=== PATIENT | female | born 1990 | race Caucasian/White ===

== ENCOUNTER 2020-07-04 05:06 | Inpatient (IN) | payer BC ==
[2020-07-04] MEDS ORDERED: Sodium Chloride 0.9% 2.5 ML Syringe FLUSH PRN (05:12)
[2020-07-04] MEDS ORDERED: ceFAZolin 1 GM in Premix Bag 1 BAG IV ONE (05:12)
[2020-07-04] MEDS ORDERED: Sodium Chloride 0.9% 10 ML Syringe FLUSH PRN (05:12)
[2020-07-04] MEDS ORDERED: Sodium Chloride 0.9% 10 ML SDV IV PRN (05:12)
[2020-07-04] MEDS ORDERED: Citric Acid/Sodium Citrate Solution 30 ML Cup PO ONE (05:12)
[2020-07-04] MEDS ORDERED: Oxytocin/0.9 % Sodium Chloride 30 UNIT/500 ML BAG IV SCH (05:15)
[2020-07-04] MEDS: Lactated Ringers 1,000 ML IV SCH ×2 (05:45→07:16)
--- NOTE | 2020-07-04 06:45 | PCM.PREANE ---
Preanesthetic Assessment - Anesthesia/Transfusion/Family Hx Anesthesia History: Prior Anesthesia Without Reaction Family History of Anesthesia Reaction: No Transfusion History: No Prior Transfusion(s) Intubation History: Unknown - Review of Systems General: No Symptoms Pulmonary: No Symptoms Cardiovascular: No Symptoms Gastrointestinal: No Symptoms Neurological: No Symptoms Other: Reports: None - Physical Assessment Height: 5 ft Weight: 69.116 kg ASA Class: 2 Mental Status: Alert & Oriented x3 Airway Class: Mallampati = 1 Dentition: Reports: Normal Dentition Thyro-Mental Finger Breadths: 3 Mouth Opening Finger Breadths: 3 ROM/Head Extension: Full Lungs: Clear to Auscultation, Normal Respiratory Effort Cardiovascular: Regular Rate, Regular Rhythm - Lab Values: Laboratory Last Values WBC 6.53 K/uL (4.0-11.0) 07/04/20 05:30 RBC 4.72 M/uL (4.30-5.90) 07/04/20 05:30 Hgb 12.2 g/dL (12.0-16.0) 07/04/20 05:30 Hct 39.1 % (36.0-46.0) 07/04/20 05:30 MCV 82.8 fL (80.0-98.0) 07/04/20 05:30 MCH 25.8 pg (27.0-32.0) L 07/04/20 05:30 MCHC 31.2 g/dL (31.0-37.0) 07/04/20 05:30 RDW Std Deviation 69.3 fl (28.0-62.0) H 07/04/20 05:30 RDW Coeff of Thien 24 % (11.0-15.0) H 07/04/20 05:30 Plt Count 234 K/uL (150-400) 07/04/20 05:30 MPV 10.20 fL (7.40-12.00) 07/04/20 05:30 Nucleated RBC % 0.0 /100WBC 07/04/20 05:30 Nucleated RBCs # 0 K/uL 07/04/20 05:30 - Allergies Allergies/Adverse Reactions: Allergies Allergy/AdvReac Type Severity Reaction Status Date / Time No Known Allergies Allergy Verified 06/28/20 08:41 - Blood Blood Available: No - Anesthesia Plan Pre-Op Medication Ordered: None - Acknowledgements Anesthesia Type Planned: Spinal (general anesthesia back-up plan) Pt an Appropriate Candidate for the Planned Anesthesia: Yes Alternatives and Risks of Anesthesia Discussed w Pt/Guardian: Yes Pt/Guardian Understands and Agrees with Anesthesia Plan: Yes PreAnesthesia Questionnaire - Past Health History Medical/Surgical History: Denies Medical/Surgical History HEENT History: Reports: None Cardiovascular History: Reports: None Respiratory History: Reports: None Gastrointestinal History: Reports: None Genitourinary History: Reports: None HAND STRIPER History: Reports: Endometriosis, Musculoskeletal History: Reports: None Neurological History: Reports: Migraines Psychiatric History: Reports: None Endocrine/Metabolic History: Reports: None Hematologic History: Reports: None Immunologic History: Reports: None Oncologic (Cancer) History: Reports: None Dermatologic History: Reports: None - Infectious Disease History Infectious Disease History: Reports: None - Past Surgical History Head Surgeries/Procedures: Reports: None HEENT Surgical History: Reports: None Cardiovascular Surgical History: Reports: None Respiratory Surgical History: Reports: None GI Surgical History: Reports: None Female Surgical History: Reports: Section (x2), Other (See Below) Other Female Surgeries/Procedures: laparoscopy for endometriosis Endocrine Surgical History: Reports: None Neurological Surgical History: Reports: None Musculoskeletal Surgical History: Reports: None Oncologic Surgical History: Reports: None Dermatological Surgical History: Reports: None - SUBSTANCE USE Tobacco Use Status *Q: Never Tobacco User Tobacco Use Within Last Twelve Months: No Second Hand Smoke Exposure: No Recreational Drug Use History: No - HOME MEDS Home Medications: Home Meds Ferrous Sulfate, Dried [Iron] 160 mg PO DAILY 04/14/20 [History] Folic Acid 1 mg PO DAILY 04/14/20 [History] Vits #93/Iron Fum/FA [ Formula Tablet] 1 each PO DAILY 04/14/20 [History] - CURRENT (IN HOUSE) MEDS Current Meds: Current Medications Oxytocin/Sodium Chloride (Oxytocin 30 Unit/500 Ml-Ns) 30 unit in 500 mls @ 250 mls/hr IV TITRATE ABBY Lactated Ringer's (Ringers, Lactated) 1,000 mls @ 500 mls/hr IV BOLUS ABBY Last Admin: 07/04/20 05:45 Dose: 500 mls/hr Documented by: Sodium Chloride (Saline Flush) 10 ml FLUSH ASDIRECTED PRN PRN Reason: Keep Vein Open Sodium Chloride (Saline Flush) 2.5 ml FLUSH ASDIRECTED PRN PRN Reason: Keep Vein Open Sodium Chloride (Normal Saline) 10 ml IV ASDIRECTED PRN PRN Reason: IV Use Discontinued Medications Citric Acid/Sodium Citrate (Bicitra Solution) 30 ml PO ONETIME ONE Stop: 07/04/20 05:13 Cefazolin Sodium/Dextrose 1 gm (/ Premix) 50 mls @ 100 mls/hr IV ONETIME ONE Stop: 07/04/20 05:41
[2020-07-04] MEDS ORDERED: Sodium Chloride 0.9% 20 ML ONE (07:10)
[2020-07-04] MEDS ORDERED: ePHEDrine 50 MG/ML SDV ONE (07:10)
[2020-07-04] MEDS ORDERED: ceFAZolin 1 GM Vial ONE (07:10)
[2020-07-04] MEDS ORDERED: Oxytocin 10 Units/1 ML SDV ONE (07:10)
[2020-07-04] MEDS ORDERED: Ondansetron 4 MG/2 ML SDV ONE (07:10)
[2020-07-04] MEDS ORDERED: Propofol 200 MG/20 ML SDV ONE (07:12)
[2020-07-04] MEDS ORDERED: Morphine PF 10 MG/10 ML SDV ONE (07:13)
[2020-07-04] MEDS ORDERED: fentaNYL 100 MCG/2 ML SDV IVPUSH PRN (09:47)
[2020-07-04] MEDS ORDERED: diphenhydrAMINE 50 MG/ML SDV IVPUSH PRN ×2 (09:47→10:00)
[2020-07-04] MEDS ORDERED: Ondansetron 4 MG/2 ML SDV IVPUSH PRN ×2 (09:47→10:00)
[2020-07-04] MEDS ORDERED: Naloxone 0.4 MG/ML Syringe IVPUSH PRN (09:47)
[2020-07-04] MEDS ORDERED: Acetaminophen/oxyCODONE 325-5 MG Tab PO PRN ×2 (09:47→10:00)
[2020-07-04] MEDS ORDERED: Nalbuphine 10 MG/1 ML Vial IVPUSH PRN (09:47)
[2020-07-04] MEDS ORDERED: Lactated Ringers 1,000 ML IV SCH (10:00)
[2020-07-04] MEDS ORDERED: Oxytocin/Lactated Ringers 30 UNIT/500 ML BAG IV SCH (10:00)
[2020-07-04] MEDS ORDERED: Bisacodyl 10 MG Supp RECTAL PRN (10:00)
[2020-07-04] MEDS ORDERED: Ibuprofen 800 MG Tab PO PRN (10:00)
[2020-07-04] MEDS ORDERED: Lanolin 100% Cream 7 GM Tube TOP PRN (10:00)
[2020-07-04] MEDS ORDERED: Tranexamic Acid 1,000 MG in Sodium Chloride 0.9% 100 ML IV PRN (10:00)
[2020-07-04] MEDS ORDERED: Methylergonovine 0.2 MG/1 ML Amp IM PRN (10:00)
[2020-07-04] MEDS ORDERED: Oxytocin 10 Units/1 ML SDV IM PRN (10:00)
[2020-07-04] MEDS ORDERED: Misoprostol 200 MCG Tab RECTAL PRN (10:00)
--- NOTE | 2020-07-04 10:18 | PCM.POSTAN ---
POST ANESTHESIA ASSESSMENT - MENTAL STATUS Mental Status: Alert - RESPIRATORY Respiratory Status: Respiratory Rate WNL - CARDIOVASCULAR CV Status: Pulse Rate WNL - GASTROINTESTINAL GI Status: No Symptoms - PAIN Pain Score: 0 (Spinal regressing.) - POST OP HYDRATION Hydration Status: Adequate & Stable (Doing well. VSS. Spinal regressing.)
[2020-07-04] MEDS: Ketorolac 30 MG/ML SDV IVPUSH SCH ×3 (10:30→21:07)
--- NOTE | 2020-07-04 20:06 | PCM.OPNOTE ---
- General Post-Op/Procedure Note Date of Surgery/Procedure: 07/04/20 Operative Procedure(s): Tertiary lower transverse cesearean section Findings: Live male delivered at 828am , 8/9 weight 2970g , 2 loose nuchal cords Pre Op Diagnosis: 29yo @ 39w1d. Previous X 2. growth restriction. Rh negative Post-Op Diagnosis: same Anesthesia Technique: Spinal Primary Surgeon: Marily Toledo Anesthesia Provider: Maurice Carey Pathology: placenta Fluid Replacement, Intraop: 2,400 Output, Urine Amount: 475 EBL in mLs: 900 Complications: None Condition: Good Free Text/Narrative:: Intake & Output 07/04/20 07/04/20 07/04/20 06:59 14:59 22:59 Output Total 825 700 Balance -825 700
[2020-07-04] MEDS: Docusate Sodium 100 MG Cap PO SCH (21:08)
[2020-07-05] MEDS: Ketorolac 30 MG/ML SDV IVPUSH SCH ×2 (04:28→11:50)
--- NOTE | 2020-07-05 07:20 | PCM48HPAN ---
Post Anesthesia Note - EVALUATION WITHIN 48HRS OF ANESTHETIC Vital Signs in Normal Range: Yes Patient Participated in Evaluation: Yes Respiratory Function Stable: Yes Airway Patent: Yes Cardiovascular Function Stable: Yes Hydration Status Stable: Yes Pain Control Satisfactory: Yes Nausea and Vomiting Control Satisfactory: Yes Mental Status Recovered: Yes Vital Signs: Last Vital Signs Temp 36.3 C 07/05/20 05:00 Pulse 79 07/05/20 05:00 Resp 17 07/05/20 05:00 BP 100/53 L 07/04/20 20:03 Pulse Ox 94 L 07/05/20 05:00 - COMMENTS/OBSERVATIONS Free Text/Narrative:: The patient has no complaints. There were no apparent anesthetic complications at this time. Discharge from anesthesia service.
[2020-07-05] MEDS: Docusate Sodium 100 MG Cap PO SCH ×2 (09:25→20:48)
--- NOTE | 2020-07-05 10:15 | OR ---
SURGEON: LILI REAVES DATE OF PROCEDURE: 07/04/2020 PREOPERATIVE DIAGNOSIS: A 29-year-old, 3, para 2-0-0-1, at 39 and 1 day for history section, Rh negative also, growth restriction. POSTOPERATIVE DIAGNOSIS: Same PROCEDURE: Tertiary lower-segment section. ESTIMATED BLOOD LOSS: 900. IV FLUIDS: 2400. URINE OUTPUT: 475. ANESTHESIA: Spinal. NOTES AND FINDINGS: A live male delivered at 8:28. score was 8 and 9. Weight is 2970 g. COMPLICATION: None. BRIEF HISTORY ABOUT THE PATIENT: She is a 29-year-old G3, P 2-0-0-1 at 39 weeks 1 day, who was undergoing routine care. She was noted to have a 2-vessel cord. Also, she had left ventricular echogenic focus. She had cell-free DNA, which was done, which was normal. she was referred to Maternal- Medicine and was diagnosed with growth restriction. She was receiving biweekly antepartum surveillance, and she had good interval growth and normal Dopplers. GBS was also negative. She was Rh negative, which she received RhoGAM. So the patient was planned to be delivered at 39 weeks. The patient was explained the risks, benefits, and alternatives of a tertiary delivery. She desired to proceed. DESCRIPTION OF PROCEDURE: The patient was taken to the operating room, where spinal anesthesia was performed without difficulty. She was prepared and draped in the dorsal supine position with a leftward tilt. A Pfannenstiel skin incision was made with a scalpel and carried down to the fascia with the scalpel. The fascia was incised and extended laterally. The fascia was from the rectus muscles superiorly and inferiorly. The rectus muscle was in the midline at the pubic symphysis. The muscle in the midline was then carefully dissected. Entry into the peritoneum was gained with gentle careful sharp and blunt dissection. Once entry into peritoneum was confirmed, the peritoneum was stretched with upward and lateral traction. The lower uterine segment was noted. An Richi retractor was then placed in. A bladder flap was created. A lower uterine incision was made. The fetus was in cephalic position. There was two cord noted around the neck. With fundal pressure, the head was delivered. Nuchal cord was reduced. With additional fundal pressure, the body was delivered. The nose was suctioned. Delayed cord clamping was observed. The was handed to the awaiting nursery nurse. Cord blood gases were then obtained. The placenta was delivered via manual massage of the uterine fundus. The uterus was then cleaned with moist laparotomy sponges. Uterus was closed in 2 layers, first with 0 Vicryl, second with 0 Monocryl. However, the uterine incision on the left side was noted to be oozing with every incision, so multiple [id number] was made. Hemostasis was noted. Then, the Richi was removed. The bladder blade was put. Incision was inspected, again noted to be hemostatic. Then, the gutters were cleaned. The right and left ovary were noted to be normal. The peritoneum was closed. The fascia was then closed with 0 Vicryl. The skin was closed with 3-0 Monocryl on a Fidencio needle. All instrument and pad counts were correct x2. LIANNE / EDVIN /[id number] MTDD
--- NOTE | 2020-07-05 19:10 | PCM.PNPP ---
- General Info Date of Service: 07/05/20 Subjective Update: 29yo P3002 s/p tertiary POD1 Ambulating , voiding and tolerating regular diet RH negative to get rhogam today Functional Status: Reports: Pain Controlled, Tolerating Diet, Ambulating, Urinating - Review of Systems General: Reports: No Symptoms HEENT: Reports: No Symptoms Pulmonary: Reports: No Symptoms Cardiovascular: Reports: No Symptoms Gastrointestinal: Reports: No Symptoms Genitourinary: Reports: No Symptoms Musculoskeletal: Reports: No Symptoms Skin: Reports: No Symptoms Neurological: Reports: No Symptoms Psychiatric: Reports: No Symptoms - General Info Date of Service: 07/05/20 - Patient Data Vital Signs - Most Recent: Last Vital Signs Temp 36.3 C 07/05/20 16:07 Pulse 84 07/05/20 16:07 Resp 18 07/05/20 16:07 BP 103/55 L 07/05/20 16:07 Pulse Ox 97 07/05/20 16:07 Weight - Most Recent: 69.116 kg I&O - Last 24 Hours: Intake & Output 07/05/20 07/05/20 07/05/20 06:59 14:59 22:59 Intake Total 900 Output Total 600 500 Balance 300 -500 Lab Results - Last 24 Hours: Laboratory Results - last 24 hr 07/05/20 Range/Units 05:32 Hgb 9.9 L (12.0-16.0) g/dL Hct 31.8 L (36.0-46.0) % Med Orders - Current: Current Medications Bisacodyl (Dulcolax) 10 mg RECTAL ONETIME PRN PRN Reason: Constipation Diphenhydramine HCl (Benadryl) 25 mg IVPUSH Q6H PRN PRN Reason: Itching or Nausea Docusate Sodium (Colace) 100 mg PO BID [facility] Last Admin: 07/05/20 09:25 Dose: 100 mg Documented by: Emollient Ointment (Lansinoh Hpa) 0 gm TOP ASDIRECTED PRN PRN Reason: Sore Nipples Fentanyl (Sublimaze) 50 mcg IVPUSH Q1H PRN PRN Reason: Pain (severe 7-10) Oxytocin/Sodium Chloride (Oxytocin 30 Unit/500 Ml-Ns) 30 unit in 500 mls @ 250 mls/hr IV TITRATE [facility] Lactated Ringer's (Ringers, Lactated) 1,000 mls @ 500 mls/hr IV BOLUS ABBY Last Admin: 07/04/20 07:16 Dose: 999 mls/hr Documented by: Lactated Ringer's (Ringers, Lactated) 1,000 mls @ 125 mls/hr IV ASDIRECTED ABBY Last Admin: 07/04/20 11:54 Dose: 125 mls/hr Documented by: Oxytocin/Lactated Ringer's (Pitocin In Lr 30 Units/500 Ml) 30 unit in 500 mls @ 2 mls/hr IV TITRATE ABBY; Protocol Tranexamic Acid 1,000 mg/ (Sodium Chloride) 110 mls @ 660 mls/hr IV ONETIME PRN PRN Reason: Bleeding Ibuprofen (Motrin) 800 mg PO Q8H PRN PRN Reason: mild pain or fever Methylergonovine Maleate (Methergine) 0.2 mg IM ONETIME PRN PRN Reason: Excessive Vaginal Bleeding Misoprostol (Cytotec) 1,000 mcg RECTAL ONETIME PRN PRN Reason: excessive bleeding Nalbuphine HCl (Nubain) 5 mg IVPUSH ASDIRECTED PRN PRN Reason: Itching Ondansetron HCl (Zofran) 4 mg IVPUSH Q6H PRN PRN Reason: Nausea Ondansetron HCl (Zofran) 4 mg IVPUSH Q4H PRN PRN Reason: Nausea/Vomiting Oxycodone/Acetaminophen (Percocet 325-5 Mg) 2 tab PO Q6H PRN PRN Reason: Pain (moderate 4-6) Oxycodone/Acetaminophen (Percocet 325-5 Mg) 1 tab PO Q4H PRN PRN Reason: Pain (moderate 4-6) Last Admin: 07/05/20 17:37 Dose: 1 tab Documented by: Oxycodone/Acetaminophen (Percocet 325-5 Mg) 2 tab PO Q4H PRN PRN Reason: Pain (moderate 4-6) Oxytocin (Pitocin) 10 unit IM ASDIRECTED PRN PRN Reason: Excessive Vaginal Bleeding Sodium Chloride (Saline Flush) 10 ml FLUSH ASDIRECTED PRN PRN Reason: Keep Vein Open Sodium Chloride (Saline Flush) 2.5 ml FLUSH ASDIRECTED PRN PRN Reason: Keep Vein Open Sodium Chloride (Normal Saline) 10 ml IV ASDIRECTED PRN PRN Reason: IV Use Discontinued Medications Cefazolin Sodium (Ancef) Confirm Administered Dose 2 gm .ROUTE .STK-MED ONE Stop: 07/04/20 07:11 Citric Acid/Sodium Citrate (Bicitra Solution) 30 ml PO ONETIME ONE Stop: 07/04/20 05:13 Diphenhydramine HCl (Benadryl) 25 mg IVPUSH Q4H PRN PRN Reason: Itching Stop: 07/05/20 09:47 Ephedrine Sulfate (Ephedrine Sulfate) Confirm Administered Dose 100 mg .ROUTE .STK-MED ONE Stop: 07/04/20 07:11 Cefazolin Sodium/Dextrose 1 gm (/ Premix) 50 mls @ 100 mls/hr IV ONETIME ONE Stop: 07/04/20 05:41 Acetaminophen (Ofirmev) Confirm Administered Dose 100 mls @ as directed .ROUTE .STK-MED ONE Stop: 07/04/20 07:09 Sodium Chloride (Normal Saline) Confirm Administered Dose 20 mls @ as directed .ROUTE .STK-MED ONE Stop: 07/04/20 07:11 Ketorolac Tromethamine (Toradol) 30 mg IVPUSH Q6H ABBY Stop: 07/05/20 10:01 Last Admin: 07/05/20 11:50 Dose: 30 mg Documented by: Morphine Sulfate (Duramorph Pf) Confirm Administered Dose 10 mg .ROUTE .STK-MED ONE Stop: 07/04/20 07:14 Naloxone HCl (Narcan) 0.1 mg IVPUSH ONETIME PRN PRN Reason: Respiratory Depression Stop: 07/05/20 09:47 Ondansetron HCl (Zofran) Confirm Administered Dose 4 mg .ROUTE .STK-MED ONE Stop: 07/04/20 07:11 Oxytocin (Pitocin) Confirm Administered Dose 30 unit .ROUTE .STK-MED ONE Stop: 07/04/20 07:11 Propofol (Diprivan 20 Ml) Confirm Administered Dose 200 mg .ROUTE .STK-MED ONE Stop: 07/04/20 07:13 - Interaction Support Person: - Recovery Exam Fundal Tone: Firm Fundal Level: At Umbilicus Fundal Placement: Midline Lochia Amount: Scant Lochia Color: Rubra/Red Perineum Description: Intact, Minimal Bruising/Swelling Episiotomy/Laceration: None Bladder Status: Voiding Urinary Elimination: Indwelling Catheter - Exam General: Alert HEENT: Pupils Equal Neck: Supple Lungs: Clear to Auscultation Cardiovascular: Regular Rate, Regular Rhythm GI/Abdominal Exam: Normal Bowel Sounds Extremities: Normal Inspection Wound/Incisions: Dressing Dry and Intact, Erythema Psy/Mental Status: Alert, Normal Affect, Normal Mood - Problem List & Annotations (1) delivery delivered SNOMED Code(s): 734048607 Code(s): O82 - ENCOUNTER FOR DELIVERY WITHOUT INDICATION Status: Acute Current Visit: Yes - Problem List Review Problem List Initiated/Reviewed/Updated: Yes - My Orders Last 24 Hours: My Active Orders 07/04/20 21:00 Docusate Sodium [Colace] 100 mg PO BID - Assessment Assessment:: 29yo P3002 s/p tertiary POD1 Ambulating , voiding and tolerating regular diet RH negative to get rhogam today Normal lochia - Plan Plan:: Routine Pain control as needed Incentive spirometry Continue ambulation Venodynes Rhogam today Possible discharge tomorrow
[2020-07-05] MEDS: Acetaminophen/oxyCODONE 325-5 MG Tab PO PRN (20:55)
--- NOTE | 2020-07-06 03:39 | PCM.PNPP ---
- General Info Date of Service: 07/06/20 Subjective Update: 29yo P3002 s/p tertiary POD2 Ambulating , voiding and tolerating regular diet RH negative received rhogam Functional Status: Reports: Pain Controlled, Tolerating Diet, Ambulating, Urinating - Review of Systems General: Reports: No Symptoms HEENT: Reports: No Symptoms Pulmonary: Reports: No Symptoms Cardiovascular: Reports: No Symptoms Gastrointestinal: Reports: No Symptoms Genitourinary: Reports: No Symptoms Musculoskeletal: Reports: No Symptoms Skin: Reports: No Symptoms Neurological: Reports: No Symptoms Psychiatric: Reports: No Symptoms - General Info Date of Service: 07/06/20 - Patient Data Vital Signs - Most Recent: Last Vital Signs Temp 36.4 C 07/05/20 21:09 Pulse 88 07/05/20 21:09 Resp 16 07/05/20 21:09 BP 93/49 L 07/05/20 21:09 Pulse Ox 97 07/05/20 21:09 Weight - Most Recent: 69.116 kg I&O - Last 24 Hours: Intake & Output 07/05/20 07/05/20 07/06/20 14:59 22:59 06:59 Intake Total 0 Output Total 500 Balance -500 0 Lab Results - Last 24 Hours: Laboratory Results - last 24 hr 07/04/20 07/05/20 Range/Units 09:53 05:32 Hgb 9.9 L (12.0-16.0) g/dL Hct 31.8 L (36.0-46.0) % Screen NEGATIVE (NEGATIVE) RhIG Candidate? YES Rhogam Indicated YES, BABY RH POS H Med Orders - Current: Current Medications Bisacodyl (Dulcolax) 10 mg RECTAL ONETIME PRN PRN Reason: Constipation Diphenhydramine HCl (Benadryl) 25 mg IVPUSH Q6H PRN PRN Reason: Itching or Nausea Docusate Sodium (Colace) 100 mg PO BID ABBY Last Admin: 07/05/20 20:48 Dose: 100 mg Documented by: Emollient Ointment (Lansinoh Hpa) 0 gm TOP ASDIRECTED PRN PRN Reason: Sore Nipples Fentanyl (Sublimaze) 50 mcg IVPUSH Q1H PRN PRN Reason: Pain (severe 7-10) Oxytocin/Sodium Chloride (Oxytocin 30 Unit/500 Ml-Ns) 30 unit in 500 mls @ 250 mls/hr IV TITRATE ABBY Lactated Ringer's (Ringers, Lactated) 1,000 mls @ 500 mls/hr IV BOLUS ABBY Last Admin: 07/04/20 07:16 Dose: 999 mls/hr Documented by: Lactated Ringer's (Ringers, Lactated) 1,000 mls @ 125 mls/hr IV ASDIRECTED ABBY Last Admin: 07/04/20 11:54 Dose: 125 mls/hr Documented by: Oxytocin/Lactated Ringer's (Pitocin In Lr 30 Units/500 Ml) 30 unit in 500 mls @ 2 mls/hr IV TITRATE ABBY; Protocol Tranexamic Acid 1,000 mg/ (Sodium Chloride) 110 mls @ 660 mls/hr IV ONETIME PRN PRN Reason: Bleeding Ibuprofen (Motrin) 800 mg PO Q8H PRN PRN Reason: mild pain or fever Last Admin: 07/05/20 23:58 Dose: 800 mg Documented by: Methylergonovine Maleate (Methergine) 0.2 mg IM ONETIME PRN PRN Reason: Excessive Vaginal Bleeding Misoprostol (Cytotec) 1,000 mcg RECTAL ONETIME PRN PRN Reason: excessive bleeding Nalbuphine HCl (Nubain) 5 mg IVPUSH ASDIRECTED PRN PRN Reason: Itching Ondansetron HCl (Zofran) 4 mg IVPUSH Q6H PRN PRN Reason: Nausea Ondansetron HCl (Zofran) 4 mg IVPUSH Q4H PRN PRN Reason: Nausea/Vomiting Oxycodone/Acetaminophen (Percocet 325-5 Mg) 2 tab PO Q6H PRN PRN Reason: Pain (moderate 4-6) Oxycodone/Acetaminophen (Percocet 325-5 Mg) 1 tab PO Q4H PRN PRN Reason: Pain (moderate 4-6) Last Admin: 07/05/20 17:37 Dose: 1 tab Documented by: Oxycodone/Acetaminophen (Percocet 325-5 Mg) 2 tab PO Q4H PRN PRN Reason: Pain (moderate 4-6) Last Admin: 07/05/20 20:55 Dose: 2 tab Documented by: Oxytocin (Pitocin) 10 unit IM ASDIRECTED PRN PRN Reason: Excessive Vaginal Bleeding Sodium Chloride (Saline Flush) 10 ml FLUSH ASDIRECTED PRN PRN Reason: Keep Vein Open Sodium Chloride (Saline Flush) 2.5 ml FLUSH ASDIRECTED PRN PRN Reason: Keep Vein Open Sodium Chloride (Normal Saline) 10 ml IV ASDIRECTED PRN PRN Reason: IV Use Discontinued Medications Cefazolin Sodium (Ancef) Confirm Administered Dose 2 gm .ROUTE .STK-MED ONE Stop: 07/04/20 07:11 Citric Acid/Sodium Citrate (Bicitra Solution) 30 ml PO ONETIME ONE Stop: 07/04/20 05:13 Diphenhydramine HCl (Benadryl) 25 mg IVPUSH Q4H PRN PRN Reason: Itching Stop: 07/05/20 09:47 Ephedrine Sulfate (Ephedrine Sulfate) Confirm Administered Dose 100 mg .ROUTE .STK-MED ONE Stop: 07/04/20 07:11 Cefazolin Sodium/Dextrose 1 gm (/ Premix) 50 mls @ 100 mls/hr IV ONETIME ONE Stop: 07/04/20 05:41 Acetaminophen (Ofirmev) Confirm Administered Dose 100 mls @ as directed .ROUTE .STK-MED ONE Stop: 07/04/20 07:09 Sodium Chloride (Normal Saline) Confirm Administered Dose 20 mls @ as directed .ROUTE .STK-MED ONE Stop: 07/04/20 07:11 Ketorolac Tromethamine (Toradol) 30 mg IVPUSH Q6H ABBY Stop: 07/05/20 10:01 Last Admin: 07/05/20 11:50 Dose: 30 mg Documented by: Morphine Sulfate (Duramorph Pf) Confirm Administered Dose 10 mg .ROUTE .STK-MED ONE Stop: 07/04/20 07:14 Naloxone HCl (Narcan) 0.1 mg IVPUSH ONETIME PRN PRN Reason: Respiratory Depression Stop: 07/05/20 09:47 Ondansetron HCl (Zofran) Confirm Administered Dose 4 mg .ROUTE .STK-MED ONE Stop: 07/04/20 07:11 Oxytocin (Pitocin) Confirm Administered Dose 30 unit .ROUTE .STK-MED ONE Stop: 07/04/20 07:11 Propofol (Diprivan 20 Ml) Confirm Administered Dose 200 mg .ROUTE .STK-MED ONE Stop: 07/04/20 07:13 - Infant Interaction Support Person: - Recovery Exam Fundal Tone: Firm Fundal Level: At Umbilicus Fundal Placement: Midline Lochia Amount: Scant Lochia Color: Rubra/Red Perineum Description: Intact, Minimal Bruising/Swelling Episiotomy/Laceration: None Bladder Status: Voiding Urinary Elimination: Indwelling Catheter - Exam General: Alert HEENT: Pupils Equal Neck: Supple Lungs: Clear to Auscultation Cardiovascular: Regular Rate, Regular Rhythm GI/Abdominal Exam: Normal Bowel Sounds Extremities: Normal Inspection Wound/Incisions: Dressing Dry and Intact Neurological: No New Focal Deficit Psy/Mental Status: Alert - Problem List & Annotations (1) delivery delivered SNOMED Code(s): 779218711 Code(s): O82 - ENCOUNTER FOR DELIVERY WITHOUT INDICATION Status: Acute Current Visit: Yes - Problem List Review Problem List Initiated/Reviewed/Updated: Yes - Assessment Assessment:: 29yo P3002 s/p tertiary POD2 Ambulating , voiding and tolerating regular diet RH negative received rhogam Normal lochia - Plan Plan:: Routine Pain control as needed Incentive spirometry Continue ambulation Venodynes discharge today
[2020-07-06] MEDS: Acetaminophen/oxyCODONE 325-5 MG Tab PO PRN (05:36)
[2020-07-06] MEDS: Docusate Sodium 100 MG Cap PO SCH (09:13)
== END 2020-07-06 10:36 | disposition home or self-care (01) | DRG 540 ==
LOC: MW.OB 05:06
PROVIDERS: ADMIT Obstetrics & Gynecology; ATTEND Obstetrics & Gynecology
PROC: 10D00Z1 Extraction of Products of Conception, Low, Open Approach (ICD-10-PCS; principal; 2020-07-04)
PROC: 3E0334Z Introduction of Serum, Toxoid and Vaccine into Peripheral Vein, Percutaneous Approach (ICD-10-PCS; 2020-07-05)
DX: O34.211 Maternal care for low transverse scar from previous cesarean delivery (principal); Z3A.39 39 weeks gestation of pregnancy; Z37.0 Single live birth; O36.5930 Maternal care for other known or suspected poor fetal growth, third trimester, not applicable or unspecified; O69.81X0 Labor and delivery complicated by cord around neck, without compression, not applicable or unspecified; O99.02 Anemia complicating childbirth; D64.9 Anemia, unspecified; Z29.13 Encounter for prophylactic Rho(D) immune globulin
CPT/HCPCS: 01961; 36415; 59025; 82803; 85014; 85018; 85027; 85460; 86592; 86850; 86900; 86901; 88307; A9270-GY; J0690; J1885; J2270; J2405; J2590; J2704; J2792; J7120